=== PATIENT | male | born 1995 | race Caucasian/White ===

== ENCOUNTER 2018-03-16 14:55 | Emergency (ER) | payer BC ==
[~2018-03-16] VITALS: Ht 177.8 cm; Wt 82.6 kg
[2018-03-16 15:05] VITALS: BP 151/79
== END 2018-03-16 15:55 | disposition home or self-care (01) ==
LOC: ER 14:55
DX: S93.122A Dislocation of metatarsophalangeal joint of left great toe, initial encounter (principal); Z88.1 Allergy status to other antibiotic agents; W22.8XXA Striking against or struck by other objects, initial encounter; Y93.89 Activity, other specified; Y99.8 Other external cause status; Y92.89 Other specified places as the place of occurrence of the external cause
CPT/HCPCS: 28630; 73630